=== PATIENT | male | born 2000 | race Caucasian/White ===

== ENCOUNTER → 2021-06-03 13:25 | Outpatient (CLI) | payer BC, SELFPAY ==
--- NOTE | 2021-06-03 13:30 | RAD_ITS ---
STUDY: X-RAY CHEST REASON FOR EXAM: Male, 20 years old. SOB TECHNIQUE: PA and lateral views of the chest. COMPARISON: None. FINDINGS: The lungs are clear and expanded. There is no demonstrated pleural abnormality. Normal size heart. Normal mediastinum and car. Normal visualized pulmonary arteries. Normal visualized aortic arch and descending thoracic aorta. Normal visualized thoracic spine. Normal visualized ribs, clavicles, and shoulders. There is no demonstrated abnormality of the visualized soft tissue structures of the upper abdomen. RAD/Chest PA and Lateral IMPRESSION: Normal x-ray examination of the chest. Electronically Signed: Judy Armstrong MD at 3:48 EDT Tel , Service support ,
== END ==
PROVIDERS: Referring Provider Otolaryngology; Visit Provider Otolaryngology
DX: R06.02 Shortness of breath (principal)
CPT/HCPCS: 71046

== ENCOUNTER → 2021-06-07 | Outpatient (CLI) | payer BC, SELFPAY ==
--- NOTE | 2021-06-07 08:12 | TONS_PTH ---
PATIENT: NANCY IQBAL LOC: [facility] #:[id number] AGE/SX: 20/M ROOM: RE06/07/[address]: Dr. Pedro Smiley MD : 2000 BED: DIS: 06/07/2021 SPEC #: [id number] RECD: 06/07/21 14:47 STATUS: NOAH REFarrukh #: [id number] ALBERTO: 06/07/21 08:[address]: Pedro Smiley DEPT: SURGICAL PATHOLOGY RECD BY: Jasmyne Hinojosa ENTERED: 06/08/21 11:01 SP TYPE: TONSILS OTHR DR: Dr. Jean Khan MD [facility] Tissues: Tonsil, NOS Procedures: Surgery Specimen Level III HEADER OPERATION: Tonsillectomy PRE-OP DIAGNOSIS: Chronic tonsillitis TISSUE SUBMITTED: Tonsils, right pinned MICROSCOPIC DIAGNOSIS Bilateral tonsils, tonsillectomy: Reactive lymphoid hyperplasia, consistent with chronic tonsillitis. Focal actinomyces colonization. SJ:eda 06/09/2021 MICROSCOPIC DESCRIPTION Slides are reviewed. GROSS DESCRIPTION Received is one container labeled with the patient's name and designated tonsils - pin on right are two tonsils that in aggregate weigh 4.9 gm. The right tonsil has a pin on it and measures 2.5 x 1.9 x 1 cm. The left tonsil measures 2.7 x 1.5 x 1 cm. Both tonsils are similar in appearance. The external surfaces are pink-hahn, smooth, glistening and somewhat lobulated. Focally they are hemorrhagic, granular and bear cautery artifact. Serial cross sections through the tonsils reveal normal tonsillar architecture. Sections are submitted in two cassettes as follows: 1 - right tonsil, 2 - left tonsil. / AM:eda 06/08/21 TC:3 CPT: 52827 x2
== END | disposition home or self-care (01) ==
LOC: LABSPEC 14:56
PROVIDERS: Referring Provider Otolaryngology; Visit Provider Otolaryngology
DX: J35.01 Chronic tonsillitis (principal)
CPT/HCPCS: 88304